=== PATIENT | male | born 1985 | race African-American/Black ===

== ENCOUNTER 2016-11-21 15:20 | Emergency (ER) | payer BC ==
[~2016-11-21] VITALS: Ht 177.8 cm; Wt 100.5 kg
[~2016-11-21 15:20] MED LIST: NAPROSYN500 MG PO; ULTRAM50 MG PO; ZITHROMAX Z-PA250 MG PO; ZOFRAN ODT4 MG PO; no home med
[2016-11-21 15:58] LABS: HEMATOCRIT 42.5 % (38.0-50.0); MCH 27.6 PG (29.0-34.0); MCHC 33.9 G/DL (30.0-36.0); MCV 81.4 FL (86-99); MEAN PLAT.VOLUME 9.9 uM^3 (9.0-12.4); PLATELET COUNT 344 K/uL (156-360); RBC DIS.WIDTH-CV 13.1 % (11.8-14.6); RBC DIS.WIDTH-SD 38.9 % (39-53); RED BLOOD COUNT 5.22 M/uL (4.00-5.50); WHITE BLOOD COUNT 10.7 K/uL (4.1-10.2)
[2016-11-21 16:05] LABS: CHLORIDE 104 mEq/L (99-109); POTASSIUM 3.6 mEq/L (3.7-5.4); SODIUM 138 mEq/L (136-147)
[2016-11-21 16:07] LABS: GLUCOSE 148 mg/dL (70-99)
[2016-11-21 16:09] LABS: ANION GAP 11 MEQ/L (2-14)
[2016-11-21 16:11] LABS: GFR ESTIMATE (CALCULATED) > 59 mL/min/
[2016-11-21 16:12] LABS: UREA NITROGEN (BUN) 13 mg/dL (9-23)
[2016-11-21] MEDS ORDERED: ZOFRAN ODT4 MG PO (16:55)
[2016-11-21] MEDS ORDERED: PERCOCET 5/31 TABLET PO (16:55)
[2016-11-21 17:31] VITALS: BP 145/93
[2016-11-21] MEDS ORDERED: MOTRIN800 MG PO (17:38)
== END 2016-11-21 17:59 | disposition home or self-care (01) ==
LOC: EME 15:20
PROVIDERS: Physician Assistant Medical
DX: S76.111A Strain of right quadriceps muscle, fascia and tendon, initial encounter (principal); W01.0XXA Fall on same level from slipping, tripping and stumbling without subsequent striking against object, initial encounter; Y93.39 Activity, other involving climbing, rappelling and jumping off; Y92.34 Swimming pool (public) as the place of occurrence of the external cause
CPT/HCPCS: 73560; 80048; 85027; 99281; 99283; J2270; J2405